=== PATIENT | male | born 1990 | race Caucasian/White ===

== ENCOUNTER 2017-02-24 10:13 | Emergency (ER) | payer OTHER ==
[2017-02-24] MEDS ORDERED: Sodium Chloride 0.9% 1,000 ML PRIMARY IV ONE (10:39)
[2017-02-24] MEDS ORDERED: MORPHINE SULFATE 4 MG/1 ML IVP ONE (10:39)
[2017-02-24] MEDS ORDERED: LORazepam 2 MG/1 ML VIAL IVP ONE (10:39)
[2017-02-24] MEDS ORDERED: ONDANSETRON 4 MG/2 ML VIAL IVP ONE (10:43)
--- NOTE | 2017-02-24 10:43 | PDOC ---
Back Pain / Injury HPI - General Chief Complaint: Neck / Back Complaint Stated Complaint: LOW BACK PAIN AFTER LIFTING AT WORK Date Seen by Provider: 02/24/17 Time Seen by Provider: 10:37 Source: Patient Exam Limitations: POSITIVE: No limitations Nurse's Notes Reviewed & Considered: Yes - History of Present Illness Initial Comments: Patient was in his normal state of health this morning when he attempted to lift a valve at work. The valve was stuck inside and and resisted his attempts to left. During his lifting he had a pop occur in his back and has had escalating pain since then. He denies any incontinence of urine or stool. No fever chills or sweats, nausea vomiting or diarrhea, chest pain or shortness of breath, hematuria or dysuria. He does have some left lower quadrant abdominal pain that began yesterday and has escalated since his back pain started this morning. He does have a history of previous kidney stone. Body Location Affected: REPORTS: Abdomen, Back Timing: REPORTS: Abrupt Duration: 1 hour Severity: Severe Quality: REPORTS: "Pain", Sharpness, Stabbing, Tenderness Context: REPORTS: Lifting Location at Time of Onset: REPORTS: Work Modifying Factors: improves with: Analgesics, Lying down Associated Symptoms: REPORTS: Back pain, Other (Left lower quadrant pain) Recent Care Received: REPORTS: Denies Any Prior Injuries Related to Current Complaint?: No - Patient Home Medications Home Medications: Home Medications Ibuprofen 1 tab PO PRN PRN 02/24/17 Insulin Lispro [Humalog] 8 unit SUBCUT C MEALS HS 02/24/17 - Patient Allergies Allergies/Adverse Reactions: Allergies Allergy/AdvReac Type Severity Reaction Status Date / Time aspirin Allergy Anaphylaxis Verified 02/24/17 10:27 Penicillins Allergy HIVES Verified 02/24/17 10:27 ROS - Limitations ROS Limitations: No Limitations Constitution: REPORTS: Denies Symptoms Cardiovascular: REPORTS: Denies Cardiac Symptoms Respiratory: REPORTS: Denies Resp Symptoms Neurological: REPORTS: Difficulty Walking, Weakness (Right lower extremity) Gastrointestinal: REPORTS: Abdominal Pain Endocrine: REPORTS: Elevated Glucose Musculoskeletal: REPORTS: Back Pain Genitourinary: REPORTS: Denies Symptoms Eyes: REPORTS: Denies Symptoms ENT: REPORTS: Denies Symptoms Skin: REPORTS: Denies Skin Symptoms Lympathic: REPORTS: Denies Lympathic Symptoms Immunologic: POSITIVE: Denies Symptoms Psychiatric: POSITIVE: Denies Psych Symptoms Back Physical Assessment - General Appearance General Appearance: REPORTS: Alert, Cooperative, No Evidence of Trauma, Moderate Distress - HEENT HEENT: POSITIVE: Head Inspection Nml, Eyes Inspection Nml, Ears Inspection Nml, Nose Inspection Nml, PERRL, EOMI - Pupil Size Pupil Size: 5 mm: Bilateral - Neck Neck: POSITIVE: Non Tender, Painless ROM, Trachea Midline - Respiratory / CVS Respiratory / CVS: POSITIVE: Chest Non Tender, No Ecchymosis, Breath Sounds Normal, No Respiratory Distress, Heart Sounds Normal, Regular Rate/Rhythm - Abdomen Abdomen: Soft: (All Quadrants), Normal Bowel Sounds: (All Quadrants), Denies Tenderness: (RLQ), (LUQ), (RUQ), Tenderness Noted: (LLQ) - Back Back: REPORTS: No CVA Tenderness, Muscle Spasm (Lumbar paraspinal muscles bilaterally) - Skin Skin: REPORTS: Intact, Normal For Race, Warm, Dry, No Rash - Extremities Extremity Assessment: Non-Tender: (ALL), Normal ROM: (ALL), No Edema: (ALL), Normal Inspection: (ALL), No Swelling: (ALL), Pelvis Stable: (ALL) Musculoskeletal: REPORTS: Back Pain - Neurological / Psychological Neuro / Psych: POSITIVE: Oriented X3, Motor Normal, Sensation Normal, Mood Appropriate, Affect Appropriate, Abnormal Reflexes Reflexes: Patellar (R): 1+, Patellar (L): 4+ Back Progress - Results Reviewed by me Xrays/CTs/US Reviewed: Yes Discussed with Radiologist: Yes Lab Results Reviewed: Yes Lab Results:: Laboratory Results 02/24/17 02/24/17 Range/Units 10:50 12:55 WBC 5.07 (4.8-10.8) 10^3/uL RBC 5.34 (4.70-6.10) 10^6/uL Hgb 15.6 (14.0-18.0) g/dL Hct 44.6 (42.0-52.0) % MCV 83.5 (80-90) FL MCH 29.2 (27-31) PG MCHC 35.0 (33-37) g/dL RDW Std Deviation 40.8 (39-50) fL RDW Coeff of [place] 13.4 (11.5-14.5) % Plt Count 181 (140-350) 10*3/uL MPV 10.8 (7.4-12.2) FL Immature Gran % (Auto) 0.2 (0-5) % Neut % (Auto) 50.9 (50-80) % Lymph % (Auto) 36.5 (10-50) % [place] % (Auto) 10.8 (5-15) % Eos % (Auto) 1.4 (0-8) % Baso % (Auto) 0.2 (0-1) % Immature Gran # (Auto) 0.01 10*3/UL Neut # (Auto) 2.58 10*3/UL Lymph # (Auto) 1.85 10*3/uL [place] # (Auto) 0.55 (0.3-0.8) 10*3/UL Eos # (Auto) 0.07 10*3/UL Baso # (Auto) 0.01 10*3/UL WBC Morphology Comment Normal morphology (NORM) Plt Morphology Comment Normal morphology (NORM) RBC Morph Comment Normal morphology (NORM) Sodium 142 (135-145) meq/L Potassium 3.9 (3.8-5.2) meq/L Chloride 105 (98-112) meq/L Carbon Dioxide 27 (23-33) meq/L Anion Gap 10 (5-20) BUN 13 (7-22) mg/dL Creatinine 0.8 (0.70-1.50) mg/dL Estimated GFR > 60 (>60 ml/min/1.73m(2)) BUN/Creatinine Ratio 16.25 (6-20) Glucose 109 (78-110) mg/dL Calculated Osmolality 294.0 H (267-292) mOsm/kg Calcium 9.4 (8.7-10.7) mg/dL Magnesium 2.0 (1.6-2.4) mg/dL Total Bilirubin 0.4 (0.3-1.2) mg/dL AST 23 (21-57) IU/L ALT 39 (21-72) IU/L Alkaline Phosphatase 78 (38-126) IU/L Total Protein 7.2 (6.1-8.0) g/dL Albumin 4.3 (3.5-4.8) g/dL Globulin 2.9 (2.50-4.10) g/dL Albumin/Globulin Ratio 1.40 (1.3-2.0) mg/g Ur Collection Type Voided specimen Urine Color Yellow Urine Clarity Clear (CLEAR) Urine pH 7.0 (5.0-8.5) Ur Specific [place] 1.015 (1.005-1.030) Urine Protein Negative (NEG) mg/dl Urine Glucose (UA) 500 (NEG) mg/dL Urine Ketones Negative (NEG) Urine Occult Blood Negative (NEG) Urine Nitrate Negative (NEG) Urine Bilirubin Negative (NEG) Urine Urobilinogen 0.2 (0.2) EU/dL Ur Leukocyte Esterase Negative (NEG) Ur Culture Indicated? Culture not set - Patient's Progress Pain Medication Addressed: POSITIVE: Yes Re-Examine Time: 13:09 Status: POSITIVE: Improved MDM / ED Course: Patient was evaluated, IV started, blood drawn and sent to the lab for studies, radiographic examinations obtained. Patient received IV normal saline, morphine sulfate, Ativan, and Norflex. His pain has improved. Findings: CBC is normal, comprehensive metabolic panel is normal, urinalysis is negative. CT scan shows no acute osseous abnormalities of his back, was present a intraparenchymal calculus bilateral kidneys. Assessment: #1 back pain, acute, probable muscle spasm. #2 renal calculi, nonobstructing. Plan: Discharge home, [place] for pain, Norflex muscle relaxers, heat and cold packs. Follow-up if no improvement in 5-7 days. - Consult Counseled: POSITIVE: Patient, RE: Lab Results, RE: Radiology Results, RE: DX, RE : Need for F/U Patient Care Time - Estimated PCT Patient Care Time (In Minutes): 30 Vital Signs - Recent Vital Signs Vital Signs: Vital Signs (Last 8 hours) Temp Pulse Resp BP Pulse Ox 02/24/17 10:13 97.4 F 82 16 144/90 97 - VS Reviewed Vital Signs Reviewed: Yes Discharge Clinical Impression: Acute low back pain, Calculus of kidney Discharge Disposition: Discharged to Home Condition: Stable Patient Instructions Given at Discharge: Back Pain (ED), Kidney Stones (ED)
[2017-02-24 10:45] VITALS: RESP 16; TEMP 97.4
[2017-02-24 10:55] LABS: BASOPHILS # (AUTO) 0.01 10*3/UL; BASOPHILS % (AUTO) 0.2 % (0-1); EOSINOPHILS # (AUTO) 0.07 10*3/UL; EOSINOPHILS % (AUTO) 1.4 % (0-8); HEMATOCRIT 44.6 % (42.0-52.0); HEMOGLOBIN 15.6 g/dL (14.0-18.0); LYMPHOCYTES # (AUTO) 1.85 10*3/uL; MEAN CORPUSCULAR HEMOGLOBIN 29.2 PG (27-31); MEAN CORPUSCULAR VOLUME 83.5 FL (80-90); MEAN PLATELET VOLUME 10.8 FL (7.4-12.2); MONOCYTES # (AUTO) 0.55 10*3/UL (0.3-0.8); MONOCYTES % (AUTO) 10.8 % (5-15); NEUTROPHILS # (AUTO) 2.58 10*3/UL; NEUTROPHILS % (AUTO) 50.9 % (50-80); RED BLOOD COUNT 5.34 10^6/uL (4.70-6.10)
[2017-02-24 10:58] LABS: PLATELET MORPHOLOGY COMMENT NORMAL MORPHOLOGY (NORM); RBC MORPHOLOGY COMMENT NORMAL MORPHOLOGY (NORM); WBC MORPHOLOGY COMMENT NORMAL MORPHOLOGY (NORM)
[2017-02-24 11:05] LABS: BLOOD UREA NITROGEN 13 mg/dL (7-22); BUN/CREATININE RATIO 16.25 (6-20); CALCIUM 9.4 mg/dL (8.7-10.7); EST GLOMERULAR FILTRATION > 60 (>60 ml/min/1.73m(2)); SERUM ALBUMIN 4.3 g/dL (3.5-4.8)
--- NOTE | 2017-02-24 12:34 | DI ---
CT ABDOMEN/PELVIS W/O CONTRAST,02/24/2017 10:39 AM: Clinical History: Back pain and left lower quadrant pain Previous Exam: None at this facility. Findings: Multiple helically acquired CT images are obtained through the abdomen and pelvis without contrast, a nd demonstrate a normal-appearing appendix. The urinary bladder is unremarkable. There are no colonic diverticula identified. There is no signifi cant peritoneal thickening. Skeletal structures are unremarkable. Vertebral body height is preserved. Intervertebral disc height is also preserved. There is no free air nor free fluid. There are a few shotty mesenteric lymph nodes. There are a few small renal parenchymal stones. There is no ureteral stone identified on this exam. Impression: 1. Renal parenchymal stones without evidence of obstructive uropathy.
[2017-02-24 13:02] LABS: BILIRUBIN,URINE NEGATIVE (NEG); CLARITY,URINE CLEAR (CLEAR); COLOR,URINE YELLOW; GLUCOSE, URINE (UA) 500 mg/dL (NEG); NITRATE,URINE NEGATIVE (NEG); OCCULT BLOOD,URINE NEGATIVE (NEG); PROTEIN,URINE NEGATIVE (NEG); UROBILINOGEN,URINE 0.2 EU/dL (0.2)
[2017-02-24 13:03] LABS: URINE SAMPLE TYPE VOIDED SPECIMEN
== END 2017-02-24 13:30 | disposition home or self-care (01) ==
LOC: ER 10:13
DX: N20.0 Calculus of kidney (principal); R10.32 Left lower quadrant pain; M54.5 Low back pain
CPT/HCPCS: 74176; 80053; 81003; 83735; 85025; 96374; 96375; 99283 ×2; J2360; J2060; J2270; J2405; J7030